=== PATIENT | male | born 1990 ===

== ENCOUNTER → 2018-02-10 | Outpatient (CLI) | payer SELFPAY ==
--- NOTE | 2018-02-10 16:59 | CPEKG ---
Test Reason : OPEN Blood Pressure : / mmHG Vent. Rate : 104 BPM Atrial Rate : 105 BPM P-R Int : 132 ms QRS Dur : 076 ms QT Int : 316 ms P-R-T Axes : 069 048 068 degrees QTc Int : 416 ms SINUS TACHYCARDIA Confirmed by Alison Wilson ([id number] on 02/10/2018 4:59:35 PM Referred By: Naeem Dominguez Confirmed By:Alison Wilson
== END ==
LOC: BCP 11:24
DX: R00.0 Tachycardia, unspecified (principal)